=== PATIENT | female | born 1950 | race Caucasian/White ===

== ENCOUNTER 2018-03-23 18:36 | Emergency (ER) | payer MEDICAID ==
[2018-03-23] MEDS: morphine 4 MG/ML VIAL IM (19:38)
== END 2018-03-23 21:32 | disposition home or self-care (01) ==
LOC: E/R 18:36
DX: S50.02XA Contusion of left elbow, initial encounter (principal); E11.9 Type 2 diabetes mellitus without complications; I10 Essential (primary) hypertension; W01.0XXA Fall on same level from slipping, tripping and stumbling without subsequent striking against object, initial encounter; Y92.9 Unspecified place or not applicable; Z95.0 Presence of cardiac pacemaker
CPT/HCPCS: 73080; 73080-RT; 96372; 99284-25

== ENCOUNTER 2019-07-01 14:17 | Emergency (ER) | payer MEDICAID | END 2019-07-01 14:44 | disposition home or self-care (01) | LOC: E/R 14:17 | DX: Z48.01 Encounter for change or removal of surgical wound dressing (principal); E11.9 Type 2 diabetes mellitus without complications; I10 Essential (primary) hypertension; Z95.0 Presence of cardiac pacemaker | CPT/HCPCS: 99281; Z7502 ==

== ENCOUNTER 2019-07-11 11:53 | Emergency (ER) | payer MEDICAID | END 2019-07-11 12:52 | disposition home or self-care (01) | LOC: E/R 12:52 | DX: Z48.01 Encounter for change or removal of surgical wound dressing (principal); I10 Essential (primary) hypertension; E11.9 Type 2 diabetes mellitus without complications; Z95.0 Presence of cardiac pacemaker | CPT/HCPCS: 99281; Z7502 ==